=== PATIENT | male | born 1990 | race Caucasian/White ===

== ENCOUNTER 2018-01-20 00:26 | Emergency (ER) | payer MEDICAID ==
[~2018-01-20] VITALS: Ht 170.2 cm; Wt 61.2 kg
[~2018-01-20 00:26] MED LIST: CRUTCH4 USE; HYDACE5 PO; IBUP600 PO; Zofran Odt4 MG SL
[2018-01-20] MEDS ORDERED: Bactrim Ds Tab1 EACH PO (01:22)
[2018-01-20] MEDS ORDERED: NIX59 ML TOP (01:22)
[2018-01-20] MEDS ORDERED: BENADRYL25 MG PO (01:22)
== END 2018-01-20 02:32 | disposition left against medical advice (07) ==
LOC: ER 00:26
DX: B86 Scabies (principal); L08.9 Local infection of the skin and subcutaneous tissue, unspecified; F17.200 Nicotine dependence, unspecified, uncomplicated
CPT/HCPCS: 99282; Q0163

== ENCOUNTER 2018-12-17 17:59 | Emergency (ER) | payer OTHER ==
[~2018-12-17] VITALS: Ht 170.2 cm; Wt 65.8 kg
[~2018-12-17 17:59] MED LIST changes: +BENADRYL25 MG PO; +Bactrim Ds Tab1 EACH PO; +NIX59 ML TOP
[2018-12-17] MEDS ORDERED: Permethrin60 GM TOP (18:45)
[2018-12-17] MEDS ORDERED: BENADRYL25 MG PO (18:45)
[2018-12-17] MEDS ORDERED: Bactrim Ds Tab1 EACH PO (18:45)
== END 2018-12-17 20:07 | disposition left against medical advice (07) ==
LOC: ER 17:59
DX: B86 Scabies (principal); L01.00 Impetigo, unspecified; F17.200 Nicotine dependence, unspecified, uncomplicated
CPT/HCPCS: 99282

== ENCOUNTER 2019-02-06 11:46 | Emergency (ER) | payer OTHER ==
[~2019-02-06] VITALS: Ht 170.2 cm; Wt 61.2 kg
[~2019-02-06 11:46] MED LIST changes: +Permethrin60 GM TOP
[2019-02-06] MEDS ORDERED: Permethrin60 GM TOP (12:52)
[2019-02-06] MEDS ORDERED: Bactrim Ds Tab1 EACH PO (12:52)
== END 2019-02-06 12:58 | disposition home or self-care (01) ==
LOC: ER 11:46
DX: B86 Scabies (principal); L01.00 Impetigo, unspecified; F17.210 Nicotine dependence, cigarettes, uncomplicated
CPT/HCPCS: 99283

== ENCOUNTER 2020-03-27 15:59 | Emergency (ER) | payer OTHER ==
[~2020-03-27] VITALS: Ht 170.2 cm; Wt 61.2 kg
[2020-03-27 17:33] LABS: BASOPHILS ABSOLUTE AUTO 0.02 K/mm3 (0.00-0.23); BASOPHILS PERCENT AUTO 0 % (0-2); EOSINOPHILS ABSOLUTE AUTO 0.18 K/mm3 (0.00-0.68); EOSINOPHILS PERCENT AUTO 2 % (0-6); Hematocrit 48.5 % (37.0-53.0); IMMATURE GRAN ABSOLUTE AUTO 0.04 K/mm3 (0.00-0.10); IMMATURE GRAN PERCENT AUTO 0 % (0-1); LYMPHOCYTES ABSOLUTE AUTO 1.35 K/mm3 (0.84-5.20); LYMPHOCYTES PERCENT AUTO 15 % (21-46); MONOCYTES ABSOLUTE AUTO 1.05 K/mm3 (0.16-1.47); MONOCYTES PERCENT AUTO 11 % (4-13); Mean Corpuscular HGB 32.6 pg (26.0-34.0); Mean Corpuscular Volume 99 fL (80-100); Mean Platelet Volume 10.4 fL (9.1-12.4); NEUTROPHILS ABSOLUTE AUTO 6.69 K/mm3 (1.96-9.15); NEUTROPHILS PERCENT AUTO 72 % (41-73); Platelet Count 316 K/mm3 (150-400); RDW Coefficient Variation 12.1 % (11.7-14.2); RDW Standard Deviation 44.2 fL (35.1-46.3); Red Blood Cell Count 4.91 M/mm3 (4.30-5.90); White Blood Cell Count 9.33 K/mm3 (4.00-11.30)
[2020-03-27 17:57] LABS: Alanine Aminotransfer (ALT/SGP 32 U/L (12-78); Albumin, Blood 4.4 g/dL (3.4-5.0); Alk Phos 90 U/L (50-136); Anion Gap 6 mmol/L (6-16); Aspartate Aminotrans (AST/SGOT 19 U/L (12-37); Bilirubin, Total 0.5 mg/dL (0.1-1.0); Blood Urea Nitrogen 13 mg/dL (8-24); Bun/Creatinine Ratio 12.5 (12.0-20.0); CO2, Blood 30 mmol/L (21-32); Calcium, Blood 10.4 mg/dL (8.5-10.1); Chloride, Blood 103 mmol/L (98-108); Creatinine, Blood 1.04 mg/dL (0.60-1.20); Globulin, Blood 4.6 g/dL (2.2-4.0); Glomerular Filtration Rate >60 (60-); Glucose, Blood 62 mg/dL (70-99); Potassium, Blood 4.1 mmol/L (3.5-5.5); Sodium, Blood 139 mmol/L (136-145)
== END 2020-03-27 21:35 | disposition left against medical advice (07) ==
LOC: ER 15:59
PROVIDERS: Physician Assistant
DX: R22.0 Localized swelling, mass and lump, head (principal); T63.301A Toxic effect of unspecified spider venom, accidental (unintentional), initial encounter; Z53.21 Procedure and treatment not carried out due to patient leaving prior to being seen by health care provider; Z79.899 Other long term (current) drug therapy
CPT/HCPCS: 36415; 80053; 85025; 99283

== ENCOUNTER 2020-05-25 14:10 | Emergency (ER) | payer OTHER ==
[~2020-05-25] VITALS: Ht 170.2 cm; Wt 61.2 kg
[2020-05-25] MEDS ORDERED: MUPIROCIN1 GM TOP (16:36)
== END 2020-05-25 16:58 | disposition home or self-care (01) ==
LOC: ER 14:10
DX: T20.26XA Burn of second degree of forehead and cheek, initial encounter (principal); T20.22XA Burn of second degree of lip(s), initial encounter; T20.27XA Burn of second degree of neck, initial encounter; F17.210 Nicotine dependence, cigarettes, uncomplicated; Z59.0 Homelessness; X10.1XXA Contact with hot food, initial encounter
CPT/HCPCS: 16000; 99284-25

== ENCOUNTER → 2022-01-31 | Emergency (ER) | payer OTHER ==
[~2022-01-31] MED LIST changes: +IBUP800 PO; +MUPIROCIN1 GM TOP
== END ==
LOC: ER 01:48
DX: R51.9 Headache, unspecified (principal); F17.210 Nicotine dependence, cigarettes, uncomplicated
CPT/HCPCS: A9270

== ENCOUNTER 2022-02-12 07:59 | Emergency (ER) | payer OTHER ==
[~2022-02-12] VITALS: Ht 170.2 cm; Wt 65.8 kg
== END 2022-02-12 09:45 | disposition home or self-care (01) ==
LOC: ER 07:59
DX: R51.9 Headache, unspecified (principal); F17.210 Nicotine dependence, cigarettes, uncomplicated; Z53.21 Procedure and treatment not carried out due to patient leaving prior to being seen by health care provider
CPT/HCPCS: 36415; A9270; J1885; J2405

== ENCOUNTER 2022-08-19 14:01 | Emergency (ER) | payer OTHER ==
[~2022-08-19] VITALS: Ht 167.6 cm; Wt 59.0 kg
== END 2022-08-19 14:39 | disposition home or self-care (01) ==
LOC: ER 14:01
DX: S60.421A Blister (nonthermal) of left index finger, initial encounter (principal); F17.200 Nicotine dependence, unspecified, uncomplicated; Z59.00 Homelessness unspecified; X08.8XXA Exposure to other specified smoke, fire and flames, initial encounter
CPT/HCPCS: 99283

== ENCOUNTER 2023-12-17 11:52 | Emergency (ER) | payer OTHER ==
[~2023-12-17] VITALS: Ht 162.6 cm; Wt 65.8 kg
[2023-12-17 12:23] VITALS: BP 128/82
[2023-12-17] MEDS ORDERED: Acetaminophen 500 MG Tab PO ONE (12:30)
[2023-12-17 13:12] LABS: Influenza A, PCR NEGATIVE (NEGATIVE); Influenza B, PCR NEGATIVE (NEGATIVE); Resp Syncytial Virus, PCR NEGATIVE (NEGATIVE); SARS-Cov-2 (COVID-19) PCR, MMC NEGATIVE (NEGATIVE)
[2023-12-17] MEDS ORDERED: Ibuprofen 400 MG Tab PO ONE (13:50)
[2023-12-17] MEDS ORDERED: Ondansetron 4 MG SoluTab SL ONE (13:50)
== END 2023-12-17 14:25 | disposition home or self-care (01) ==
LOC: ER 11:52
PROVIDERS: Student in an Organized Health Care Education/Training Program
DX: R51.9 Headache, unspecified (principal); R11.2 Nausea with vomiting, unspecified; F17.200 Nicotine dependence, unspecified, uncomplicated
CPT/HCPCS: 0241U; 99284; A9270

== ENCOUNTER 2024-05-23 12:37 | Emergency (ER) | payer OTHER ==
[~2024-05-23] VITALS: Ht 167.6 cm; Wt 61.2 kg
[2024-05-23 12:50] VITALS: BP 162/54
[2024-05-23] MEDS ORDERED: Ondansetron 4 MG SoluTab SL ONE (13:30)
[2024-05-23 13:46] LABS: CORONAVIRUS COVID-19 AG Negative (NEGATIVE); INFLUENZA A AG Negative (NEGATIVE); INFLUENZA B AG Negative (NEGATIVE)
[2024-05-23] MEDS ORDERED: ONDA4ODT MM (14:25)
[2024-05-23] MEDS ORDERED: Benzonatate 100 MG Cap PO ONE (14:25)
[2024-05-23] MEDS ORDERED: PSEUDOEPHEDRINE30 M3 PO (14:25)
[2024-05-23] MEDS ORDERED: BENZ100A PO (14:25)
[2024-05-23] MEDS ORDERED: Pseudoephedrine HCl 30 MG Tab PO ONE (14:25)
== END 2024-05-23 14:35 | disposition home or self-care (01) ==
LOC: ER 12:37
PROVIDERS: Physician Assistant
DX: J06.9 Acute upper respiratory infection, unspecified (principal); G43.909 Migraine, unspecified, not intractable, without status migrainosus; F17.200 Nicotine dependence, unspecified, uncomplicated; Z59.89 Other problems related to housing and economic circumstances
CPT/HCPCS: 71046; 87428-QW; 99283-25; A9270

== ENCOUNTER 2024-10-30 11:56 | Emergency (ER) | payer OTHER ==
[~2024-10-30] VITALS: Ht 167.6 cm; Wt 59.0 kg
[~2024-10-30 11:56] MED LIST changes: +BENZ100A PO; +ONDA4ODT MM; +PSEUDOEPHEDRINE30 M3 PO
[2024-10-30] MEDS ORDERED: Ondansetron HCl 2 MG / ML 2ML Vial IV PRN (12:20)
[2024-10-30 13:08] LABS: BASOPHILS ABSOLUTE AUTO 0.01 K/mm3 (0.00-0.23); BASOPHILS PERCENT AUTO 0 % (0-2); EOSINOPHILS ABSOLUTE AUTO 0.12 K/mm3 (0.00-0.68); EOSINOPHILS PERCENT AUTO 2 % (0-6); Hematocrit 43.5 % (37.0-53.0); Hemoglobin 14.2 g/dL (13.5-17.5); IMMATURE GRAN ABSOLUTE AUTO 0.02 K/mm3 (0.00-0.10); IMMATURE GRAN PERCENT AUTO 0 % (0-1); LYMPHOCYTES ABSOLUTE AUTO 1.18 K/mm3 (0.84-5.20); LYMPHOCYTES PERCENT AUTO 18 % (21-46); MONOCYTES PERCENT AUTO 11 % (4-13); Mean Corpuscular HGB 31.2 pg (26.0-34.0); Mean Corpuscular HGB Conc 32.6 g/dL (31.5-36.5); Mean Corpuscular Volume 96 fL (80-100); Mean Platelet Volume 10.3 fL (9.1-12.4); NEUTROPHILS ABSOLUTE AUTO 4.45 K/mm3 (1.96-9.15); NEUTROPHILS PERCENT AUTO 69 % (41-73); Platelet Count 264 K/mm3 (150-400); RDW Standard Deviation 49.3 fL (35.1-46.3); Red Blood Cell Count 4.55 M/mm3 (4.30-5.90); White Blood Cell Count 6.48 K/mm3 (4.00-11.30)
[2024-10-30 14:02] LABS: Albumin/Globulin Ratio 1.1 (0.8-1.8); Bilirubin, Total 0.5 mg/dL (0.1-1.0); Bun/Creatinine Ratio 19.2 (12.0-20.0); Calcium, Blood 8.5 mg/dL (8.5-10.1); Creatinine, Blood 0.89 mg/dL (0.60-1.20); Globulin, Blood 3.6 g/dL (2.2-4.0); Potassium, Blood 4.8 mmol/L (3.5-5.5); Total Protein, Blood 7.6 g/dL (6.4-8.2)
[2024-10-30] MEDS ORDERED: ONDA4ODT MM (14:31)
[2024-10-30] MEDS ORDERED: LOPE2C PO (14:31)
[2024-10-30 14:47] VITALS: BP 100/63
== END 2024-10-30 14:47 | disposition home or self-care (01) ==
LOC: ER 11:56
PROVIDERS: Emergency Medicine
DX: R11.2 Nausea with vomiting, unspecified (principal); R19.7 Diarrhea, unspecified; G43.909 Migraine, unspecified, not intractable, without status migrainosus; F17.200 Nicotine dependence, unspecified, uncomplicated
CPT/HCPCS: 80053; 85025; 96374; 99284-25; J2405

== ENCOUNTER 2025-01-14 02:37 | Emergency (ER) | payer OTHER ==
[~2025-01-14] VITALS: Ht 172.7 cm; Wt 68.0 kg
[~2025-01-14 02:37] MED LIST changes: +LOPE2C PO
[2025-01-14 03:00] VITALS: BP 109/80
[2025-01-14] MEDS ORDERED: ACET500 PO (04:03)
[2025-01-14] MEDS ORDERED: Ibuprofen600 MG PO (04:03)
== END 2025-01-14 04:00 | disposition home or self-care (01) ==
LOC: ER 02:37
DX: J02.9 Acute pharyngitis, unspecified (principal); F17.200 Nicotine dependence, unspecified, uncomplicated; Z59.89 Other problems related to housing and economic circumstances
CPT/HCPCS: 87081; 87430; 99283